=== PATIENT | male | born 1970 | race Two or more races ===

== ENCOUNTER 2024-09-14 08:03 | Outpatient (RCR) | payer MEDICAID, SELFPAY ==
--- NOTE | 2024-09-14 09:21 | PT.ODS1RPT ---
PT OP Progress/Discharge Note Date of Service: 09/14/24 Progress Note/DC Note Progress Note/Discharge Note: DC Note Patient Information Visit Reasons: Chronic low back pain Medical Diagnosis: M54.50 Treatment Dx #1: Back Pain Service Continue Service or Discharge: Discharge Discharge Date: 09/14/24 Status Subjective: Pt's back is the same and continues to have pain (05/18) leading to difficulty with ADLs. Pt mention physical therapy has not helped much. Pt will return back to provider for further consultation. Objective: L/S AROM: all motions are 50% towards end range with pain Hip PROM: all motions are WFL except IR Hip MMTs: grossly 3/5 Special Test (+) SLR Assessment: Pt demonstrate minimal progress with mobility and pain since starting physical therapy leading to difficulty with ADLs. Pt will no longer benefit from physical therapy due to minimal progress towards goals. Pt was instructed on HEP last session and educated to continue exercises to maintain overall mobility. Pt performed all exercises safely, thank you for your referrals. Plan: D/C home with HEP and follow up with MD FAULKNER Procedure Charges Therapeutic Exercise 30 minutes: Yes
== END 2024-10-08 23:59 | disposition home or self-care (01) ==
LOC: CPTX 08:03
PROVIDERS: PCP Physician Assistant Medical; Referring Provider Physician Assistant Medical; Visit Provider Physician Assistant Medical
DX: M51.372 Other intervertebral disc degeneration, lumbosacral region with discogenic back pain and lower extremity pain (principal)
CPT/HCPCS: 97110